=== PATIENT | female | born 1985 | race Caucasian/White ===

== ENCOUNTER 2018-01-18 19:19 | Emergency (ER) | payer BC, OTHER ==
[~2018-01-18] VITALS: Ht 162.6 cm; Wt 104.5 kg
[2018-01-18 19:55] VITALS: BP 142/88
== END 2018-01-18 20:13 | disposition home or self-care (01) ==
LOC: EMS 19:20
DX: H00.015 Hordeolum externum left lower eyelid (principal); H01.005 Unspecified blepharitis left lower eyelid